=== PATIENT | male | born 1980 | race Caucasian/White ===

== ENCOUNTER → 2017-01-09 | Outpatient (CLI) | payer MEDICAID ==
--- NOTE | 2017-01-12 13:09 | CPEEG ---
[f rep st] ELECTROENCEPHALOGRAM 4-HOUR VIDEO EEG DATE OF STUDY: 01/09/2017 DATE OF INTERPRETATION: 01/12/2017 INTERPRETATION: This 4-hour video EEG recording is normal. There were no potentially epileptogenic abnormalities present during the awake or sleep recordings. During the video EEG monitoring session, the patient did not have any clinical events. REPORT: This 4-hour video EEG contains 9-10 Hz alpha activity to the posterior head regions. There was no abnormal activation at rest, photic stimulation, or hyperventilation. The patient became drowsy and fell asleep during the study. There was no abnormal activation during drowsiness, sleep, or during times of arousal. During drowsiness, the patient continued to have some intermittent beta spindles in the range of 35 Hz, lasting typically less than 1 second maximal over the frontocentral head regions. These bursts of high frequency activity were distinct from the patient's normal sleep spindles in stage 2 non-REM sleep. These may represent normal physiologic activity versus activity of uncertain clinical significance. The patient did not have any clinical events during the video EEG monitoring session. /[id number]/MODL MTDD
== END ==
LOC: FCPNEURO 11:36
PROVIDERS: ATTEND Psychiatry & Neurology Neurology
DX: G40.009 Localization-related (focal) (partial) idiopathic epilepsy and epileptic syndromes with seizures of localized onset, not intractable, without status epilepticus (principal)

== ENCOUNTER → 2017-01-17 | Outpatient (CLI) | payer MEDICAID | LOC: FIMAGING 08:52 | PROVIDERS: ATTEND Psychiatry & Neurology Neurology | DX: R56.9 Unspecified convulsions (principal) ==